=== PATIENT | female | born 1995 | race Caucasian/White ===

== ENCOUNTER 2021-05-12 13:14 | Emergency (ER) | payer BC, OTHER ==
--- NOTE | 2021-05-12 13:51 | EDM.PDOCBH ---
ED HPI GENERAL MEDICAL PROBLEM - General Chief Complaint: Behavioral/Psych Stated Complaint: AMBULANCE Time Seen by Provider: 05/12/21 13:46 Source of Information: Reports: Patient, EMS, RN, RN Notes Reviewed History Limitations: Reports: No Limitations - History of Present Illness INITIAL COMMENTS - FREE TEXT/NARRATIVE: Susan is a 25 y/o female with a history of schizophrenia who presents to the ED via [facility] at the request of individuals close to her due to verbal aggression. Upon arrival to this facility the patient is calm and alert and oriented to all spheres. She states she is not suicidal or homicidal. She states she is visiting the area and has her medications at home. She refuses a medical examination stating she has no physical problems, but that she needed a ride away from the people she was around. - Related Data Allergies Allergy/AdvReac Type Severity Reaction Status Date / Time No Known Allergies Allergy Verified 05/12/21 13:33 Home Meds: Home Meds . [Unable to Verify Home Med List] 12/08/18 [History] Past Medical History - Past Health History Medical/Surgical History: Denies Medical/Surgical History Psychiatric History: Reports: Schizophrenia Social & Family History - Family History Family Medical History: No Pertinent Family History ED ROS GENERAL - Review of Systems Review Of Systems: Unable To Obtain Reason Not Obtained: Patient refused medical examination ED EXAM, BEHAVIORAL HEALTH - Physical Exam Exam: Not Obtained Text/Narrative:: Patient refused medical examination Departure - Departure Time of Disposition: 13:52 Disposition: Left Without Being Seen 07 Clinical Impression: Patient left without being seen - Discharge Information
== END 2021-05-12 13:52 | disposition left against medical advice (07) ==
LOC: DL.ED 13:14
DX: Z53.21 Procedure and treatment not carried out due to patient leaving prior to being seen by health care provider (principal)
CPT/HCPCS: 80305-QW